=== PATIENT | female | born 1970 | race Two or more races ===

== ENCOUNTER 2022-03-25 13:51 | Emergency (ER) | payer OTHER ==
[2022-03-25 14:28] VITALS: BP 136/84; PULSE 77; RESP 17; TEMP 98.1; BMI 38.1
[2022-03-25] MEDS ORDERED: predniSONE 20 MG TABLET (UD) PO ONE (16:01)
[2022-03-25] MEDS ORDERED: valACYclovir HCL 1000 MG TABLET PO ONE (16:01)
[2022-03-25] MEDS ORDERED: ARTIFICIAL TEARS (POLYVINYL ALCOHOL) OPTH DROPS OU ONE (16:01)
[2022-03-25] MEDS ORDERED: valACYclovir HCL 500 MG TABLET (FP) ONE (16:21)
[2022-03-25] MEDS ORDERED: predniSONE 20 MG TABLET (UD) ONE (16:21)
== END 2022-03-25 18:35 | disposition home or self-care (01) ==
LOC: JER 13:51
DX: G51.0 Bell's palsy (principal); R29.810 Facial weakness
CPT/HCPCS: 70450-TC; 82962; 93005; 93010; 99285-25